=== PATIENT | female | born 1975 | race Caucasian/White ===

== ENCOUNTER 2023-08-23 18:41 | Emergency (ER) | payer OTHER, MEDICAID ==
[~2023-08-23] VITALS: Ht 149.9 cm; Wt 98.0 kg
[2023-08-23 19:43] VITALS: BP 142/79; PULSE 62; RESP 16; TEMP 97.9; O2SAT 98
[2023-08-23 22:47] VITALS: BP 142/79; PULSE 62; RESP 16; TEMP 97.9; O2SAT 98
== END 2023-08-23 22:42 | disposition left against medical advice (07) ==
LOC: MED 18:41
DX: R10.33 Periumbilical pain (principal); Z53.21 Procedure and treatment not carried out due to patient leaving prior to being seen by health care provider
CPT/HCPCS: 99281